=== PATIENT | male | born 1955 | race Caucasian/White ===

== ENCOUNTER 2016-09-07 10:23 | Emergency (ER) | payer OTHER ==
[2016-09-07] MEDS ORDERED: diphenhydrAMINE HCL 50 MG/ML VIAL IM ONE (10:46)
[2016-09-07] MEDS ORDERED: METHYLPREDNISOLONE ACETATE 80 MG/ML VIAL IM ONE (10:46)
[2016-09-07] MEDS ORDERED: METHYLPREDNISOLONE ACETATE 80 MG/ML VIAL ONE (10:48)
[2016-09-07] MEDS ORDERED: diphenhydrAMINE HCL 50 MG/ML VIAL ONE (10:48)
--- NOTE | 2016-09-07 11:35 | ERNOTE ---
Integumentary HPI - General Presenting Symptoms: insect bite Time Seen by Provider: 09/07/16 10:39 Source: patient - Immun/Allergies/Home Medications Allergies/Adverse Reactions: Allergies Allergy/AdvReac Type Severity Reaction Status Date / Time penicillin G Allergy Verified 09/07/16 10:33 Home Medications: HOME MEDICATIONS Aspirin [Aspirin Chewable] 81 mg PO DAILY 09/07/16 [Last Taken Unknown] Atorvastatin Calcium [Lipitor] 10 mg PO DAILY 09/07/16 [Last Taken Unknown] Benazepril HCl 10 mg PO DAILY 09/07/16 [Last Taken Unknown] HYDROcodone/ACETAMINOPHEN [[place] 5-325] 1 tab PO Q4H PRN 09/07/16 [Last Taken Unknown] Ibuprofen 400 mg PO Q8H 09/07/16 [Last Taken Unknown] Lansoprazole [Prevacid] 30 mg PO DAILY 09/07/16 [Last Taken Unknown] Metoprolol Tartrate [Lopressor] 100 mg PO DAILY 09/07/16 [Last Taken Unknown] metFORMIN HCL [Glucophage] 500 mg PO DAILY 09/07/16 [Last Taken Unknown] predniSONE [Prednisone] 1 tab PO TID #15 tab 09/07/16 [Last Taken Unknown] - Pain Pain Score: 5 - History of Present Illness Narrative: patient bit on head by bee getting out of hot tube Location: Reports: facial Quality: Reports: itching, painful Severity: moderate Exposure: Reports: insect bite/spider Modifying Factors - (Improves): Reports: nothing Modifying Factors - (Worsens): Reports: nothing Associated Symptoms: Reports: swelling/mass/lumps Review of Systems - Review of Systems Constitutional: Present: no symptoms reported EYE: Present: other - periorbital swelling ENT: Present: nose pain, nose congestion, nasal drainage Respiratory: Present: no symptoms reported Cardiology: Present: no symptoms reported Gastrointestinal/Abdominal: Present: no symptoms reported Genitourinary: Present: no symptoms reported Musculoskeletal: Present: no symptoms reported Skin: Present: no symptoms reported Neurological: Present: no symptoms reported Endocrine: Present: no symptoms reported Hematologic/Lymphatic: Present: no symptoms reported Psych: Present: no symptoms reported All Other Systems: All systems neg except as marked - Patient's Past Medical History Patient History - Medical: Diabetes Type 2, GERD Patient History - Cardiac/Respiratory: Hypertension, Hyperlipidemia Patient History - Cancer: No Hx of Cancer Patient History - Surgical Procedures: Appendectomy, Hernia Repair Patient History - Other: None - Family History Family History:: no untoward family reactions to anesthesia, no family history of clotting disorders - Social History Living Situations: home Abuse History: No History of abuse Psych History: No pertinent hx Have you smoked in the past 12 months: No Do you dip or chew tobacco: No Patient requests Smoking Cessation Consult: No Initiate information on Smoking Cessation: No Alcohol Use: none - Immunizations Immunizations Up to Date: Yes Hx Pneumococcal Vaccination: Yes History of Influenza Vaccine: Yes Physical Exam - Physical Exam General Appearance: Present: mild distress, anxious Head Exam: Present: swelling Eye Exam: Normal inspection: bilateral, PERRL: bilateral, EOMI: bilateral Ears, Nose, Throat: Present: sinus pain/drainage, pharyngeal erythema Neck: Present: normal inspection, nontender Respiratory: Present: no respiratory distress, normal breath sounds, no accessory muscle use, chest nontender, lungs clear Cardiovascular/Chest: Present: regular rate, rhythm, no murmur, normal peripheral pulses Peripheral Pulses: N=norm/S=strong/W=weak/B=bound/A=absent: Carotid (R): Normal , Carotid (L): Normal, Radial (R): Normal, Radial (L): Normal, Femoral (R): Normal, Femoral (L): Normal, Dorsalis-pedis (R): Normal, Dorsalis-pedis (L): Normal Gastrointestinal/Abdominal: Present: normal bowel sounds, nontender, nondistended, soft, no organomegaly Back Exam: Present: normal inspection, normal range of motion, no CVA tenderness , no vertebral tenderness Extremity Exam: Present: normal inspection, non-tender, normal range of motion, no edema Neurological Exam: Present: alert, oriented, normal mood/affect, no motor/ sensory deficits DTR: N=norm/NB=norm/brisk/A=abs/DD=dull/dimin/HC=hyperactive: Bicep (R): Normal , Bicep (L): Normal, Tricep (R): Normal, Tricep (L): Normal, Knee (R): Normal, Knee (L): Normal, Ankle (R): Normal, Ankle (L): Normal Skin Exam: Present: normal color, warm/dry ED Progress - Vital Signs Patient's Vital Signs:: I have reviewed the patient's vital signs. Vital Signs: Vital Signs 09/07/16 10:28 Temperature 36.6 C Pulse Rate 70 Respiratory 12 Rate Blood Pressure 139/84 O2 Sat by Pulse 94 Oximetry - Progress/Reassessment Chief Complaint: Insect Bite Progress:: Improved - Transfer of Care Expected Disposition: Discharge Departure Clinical Impression: Bee sting reaction - Departure Disposition: Home self-care Condition: Good Instructions: Bee, Wasp, or Hornet Sting Prescriptions: predniSONE [Prednisone] 1 tab PO TID #15 tab
[2016-09-07 12:26] VITALS: BP 137/81
== END 2016-09-07 11:40 | disposition home or self-care (01) ==
LOC: ER 10:23
DX: T63.441A Toxic effect of venom of bees, accidental (unintentional), initial encounter (principal); E11.9 Type 2 diabetes mellitus without complications; K21.9 Gastro-esophageal reflux disease without esophagitis; I10 Essential (primary) hypertension; E78.5 Hyperlipidemia, unspecified